=== PATIENT | female | born 1945 | race Caucasian/White ===

== ENCOUNTER 2016-08-24 09:36 | Inpatient (IN) | payer MEDICARE, OTHER ==
[~2016-08-24] VITALS: Ht 160 cm; Wt 70.8 kg
[2016-08-24] MEDS ORDERED: ENALAPRIL20 MG PO (09:45)
[2016-08-24] MEDS ORDERED: SYNTHROID25 MCG PO (09:45)
[2016-08-24] MEDS ORDERED: PROZAC10 MG PO (09:45)
[2016-08-24] MEDS ORDERED: ALPRAZOLAM PO (09:45)
[2016-08-24] MEDS ORDERED: HYDROCHLOROT25 MG PO (09:46)
[2016-08-24 09:54] LABS: HEMATOCRIT 32.8 % (37.0-47.0); HEMOGLOBIN 10.7 g/dl (12.0-16.0); IMMATURE GRANULOCYTES 0.2 % (0.0-1.0); MEAN CELL VOLUME 84.8 fL CALC (80.0-100.0); MEAN CORPUSCULAR HGB 27.6 pG CALC (26.0-32.0); MEAN CORPUSCULAR HGB CONC 32.6 g/L CALC (32.0-36.0); NEUT# 3.6 thou/uL (2.00-7.15); RED BLOOD COUNT 3.87 mill/uL (4.20-5.60); RED CELL DISTRI WIDTH 14.9 % (11.5-15.5)
[2016-08-24 10:10] LABS: PROTHROMBIN TIME 10.5 SECONDS (9.0-12.5)
[2016-08-24 10:12] LABS: ALBUMIN 3.8 g/dL (3.2-5.0); ALKALINE PHOSPHATASE 79 u/l (38-126); AMYLASE 56 u/l (30-110); ANION GAP 13 (6-22 (CALC)); BILIRUBIN, TOTAL 0.5 mg/dL (0.0-1.4); BUN 11 mg/dL (8-23); BUN/CREATININE RATIO 15 (12-20 (CALC)); CALCIUM 9.3 mg/dL (8.4-10.2); CARBON DIOXIDE 25 mmol/l (22-30); CHLORIDE 105 mmol/l (95-108); CREATININE 0.7 mg/dL (0.5-1.0); GFR > 60 ML/MIN (>=60 (CALC)); GFR FOR AFR.AMER. > 60 ML/MIN (>=60 (CALC)); GLUCOSE 105 mg/dL (82-115); LIPASE 57 u/l (23-300); SGOT/AST 23 u/l (9-36); SGPT/ALT 28 u/l (11-66); SODIUM 139 mmol/l (137-146); TOTAL PROTEIN 6.6 g/dL (6.3-8.2)
[2016-08-24] MEDS ORDERED: PRILOSEC20 MG PO (10:18)
[2016-08-24 10:24] LABS: MYOGLOBIN 22 ng/mL (0 - 62)
[2016-08-24 12:34] VITALS: BP 140/71
[2016-08-24 14:57] VITALS: BP 104/60
[2016-08-24 15:56] LABS: URINE BILIRUBIN - DIPSTICK NEGATIVE (NEGATIVE); URINE BLOOD DIPSTICK NEGATIVE (NEGATIVE); URINE CLARITY CLEAR; URINE COLOR YELLOW; URINE GLUCOSE - DIPSTICK NEGATIVE (NEGATIVE); URINE KETONE NEGATIVE (NEGATIVE); URINE NITRITE - DIPSTICK NEGATIVE (Negative); URINE PROTEIN - DIPSTICK NEGATIVE (NEG-TRACE); URINE SPECIFIC GRAVITY 1.025
[2016-08-24 15:57] LABS: URINE LEUK ESTERASE SMALL (NEGATIVE)
[2016-08-24 16:04] LABS: URINE SQUAMOUS EPITHELIAL CELL FEW EPI/hpf (0-FEW)
[2016-08-24 19:30] VITALS: BP 143/66
[2016-08-24 23:57] VITALS: BP 149/66
[2016-08-25 04:33] VITALS: BP 124/51
[2016-08-25 04:37] VITALS: BP 148/67
[2016-08-25 05:41] LABS: CALCULATED LDLCHOLESTEROL 95 mg/dL (62-129 (CALC)); HDL CHOLESTEROL 31 mg/dL (>=40); TOTAL CHOLESTEROL 159 mg/dl (0-199); TOTAL TRIGLYCERIDES 166 mg/dl (30-149); VLDL CHOLESTROL 33 mg/dl (0-48 (CALC))
[2016-08-25 08:28] VITALS: BP 107/39
[2016-08-25 10:53] VITALS: BP 134/62
== END 2016-08-25 13:55 | disposition short-term general hospital (02) | DRG 303 ==
LOC: ED 09:36 → ED-I 10:45 → ED 11:07 → MS2 11:08
PROVIDERS: Emergency Medicine; ADMIT Internal Medicine; ATTEND Internal Medicine
DX: I25.110 Atherosclerotic heart disease of native coronary artery with unstable angina pectoris (principal); I11.0 Hypertensive heart disease with heart failure; I50.9 Heart failure, unspecified; R82.71 Bacteriuria; F41.9 Anxiety disorder, unspecified; K21.9 Gastro-esophageal reflux disease without esophagitis; E03.9 Hypothyroidism, unspecified; F31.9 Bipolar disorder, unspecified; Z82.49 Family history of ischemic heart disease and other diseases of the circulatory system; Z87.891 Personal history of nicotine dependence
CPT/HCPCS: J1650

== ENCOUNTER 2020-09-29 16:48 | Emergency (ER) | payer MEDICARE ==
[~2020-09-29] VITALS: Ht 160 cm; Wt 77.0 kg
[~2020-09-29 16:48] MED LIST: ALPRAZOLAM PO; ENALAPRIL20 MG PO; HYDROCHLOROT25 MG PO; PRILOSEC20 MG PO; PROZAC20 MG PO; SYNTHROID200 MCG PO
[2020-09-29 17:16] LABS: IMMATURE GRANULOCYTES 0.7 % (0.0-5.0); MEAN CELL VOLUME 88.2 fL CALC (80.0-100.0); MEAN CORPUSCULAR HGB 29.4 pG CALC (26.0-32.0); MEAN CORPUSCULAR HGB CONC 33.3 g/dL CAL (32.0-36.0); NEUT# 12.95 thou/uL (2.00-7.15); RED BLOOD COUNT 4.42 mill/uL (4.20-5.60); RED CELL DISTRI WIDTH 13.2 % (11.5-15.5)
[2020-09-29 17:29] LABS: ALBUMIN 3.6 g/dL (3.2-5.0); ALKALINE PHOSPHATASE 104 u/l (38-126); ANION GAP 12 (6-22 (CALC)); BILIRUBIN, TOTAL 0.4 mg/dL (0.0-1.4); BUN 19 mg/dL (8-23); BUN/CREATININE RATIO 31 (12-20 (CALC)); CARBON DIOXIDE 26 mmol/l (22-30); CHLORIDE 96 mmol/l (95-108); CREATININE 0.6 mg/dL (0.5-1.0); GFR > 60 ML/MIN (>=60 (CALC)); GFR FOR AFR.AMER. > 60 ML/MIN (>=60 (CALC)); POTASSIUM 3.4 mmol/l (3.5-5.1); SGOT/AST 24 u/l (9-36); SODIUM 131 mmol/l (137-146); TOTAL PROTEIN 6.9 g/dL (6.3-8.2)
[2020-09-29 18:42] LABS: URINE BILIRUBIN - DIPSTICK NEGATIVE (NEGATIVE); URINE BLOOD DIPSTICK NEGATIVE (NEGATIVE); URINE COLOR YELLOW; URINE GLUCOSE - DIPSTICK NEGATIVE (NEGATIVE); URINE KETONE NEGATIVE (NEGATIVE); URINE LEUK ESTERASE TRACE (NEGATIVE); URINE PROTEIN - DIPSTICK NEGATIVE (NEG-TRACE); URINE SPECIFIC GRAVITY 1.025
[2020-09-29 18:44] LABS: URINE NITRITE - DIPSTICK NEGATIVE (Negative)
== END 2020-09-29 19:10 ==
LOC: ED 16:48
PROVIDERS: Family Medicine
PROC: 0T9B70Z Drainage of Bladder with Drainage Device, Via Natural or Artificial Opening (ICD-10-PCS; principal; 2020-09-29)
DX: M54.16 Radiculopathy, lumbar region (principal); I10 Essential (primary) hypertension; Z98.890 Other specified postprocedural states

== ENCOUNTER 2020-10-20 00:36 | Emergency (ER) | payer MEDICARE ==
[~2020-10-20] VITALS: Ht 160 cm; Wt 77.0 kg
[2020-10-20 01:08] LABS: IMMATURE GRANULOCYTES 1.2 % (0.0-5.0); MEAN CELL VOLUME 92.1 fL CALC (80.0-100.0); MEAN CORPUSCULAR HGB 29.6 pG CALC (26.0-32.0); MEAN CORPUSCULAR HGB CONC 32.1 g/dL CAL (32.0-36.0); NEUT# 9.75 thou/uL (2.00-7.15); RED BLOOD COUNT 3.04 mill/uL (4.20-5.60); RED CELL DISTRI WIDTH 16.9 % (11.5-15.5)
[2020-10-20 01:27] LABS: POTASSIUM 3.2 mmol/l (3.5-5.1); TOTAL PROTEIN 5.7 g/dL (6.3-8.2)
[2020-10-20 01:34] LABS: ACT PARTIAL THROMBO TIME 36.3 SECONDS (20.0-32.5); CREATININE 1.6 mg/dL (0.5-1.0)
[2020-10-20 01:35] LABS: ALBUMIN 2.8 g/dL (3.2-5.0); BILIRUBIN, TOTAL 0.8 mg/dL (0.0-1.4)
[2020-10-20 02:22] LABS: INTERNATIONAL NORMALIZED RATIO 12.9 RATIO (0.7-1.3); PROTHROMBIN TIME 128.2 SECONDS (9.0-12.5)
[2020-10-20] MEDS ORDERED: ALLOPURINOL100 MG PO (03:38)
[2020-10-20] MEDS ORDERED: TRAZODONE50 MG PO (03:39)
[2020-10-20] MEDS ORDERED: TOPROL XL25 M1 PO (03:40)
[2020-10-20] MEDS ORDERED: LASIX20 MG PO (03:40)
[2020-10-20] MEDS ORDERED: FAMOTIDINE20 M1 PO (03:40)
[2020-10-20] MEDS ORDERED: MORPHINE SUL15 MG PO (03:41)
[2020-10-20] MEDS ORDERED: OXYCODONE5 M1 PO (03:42)
[2020-10-20] MEDS ORDERED: CEFAZOLIN SODIUM2 GM IV (03:44)
[2020-10-20 03:58] VITALS: BP 147/80
== END 2020-10-20 03:57 | disposition short-term general hospital (02) ==
LOC: ED 00:36
PROVIDERS: Emergency Medicine
DX: I11.0 Hypertensive heart disease with heart failure (principal); I50.9 Heart failure, unspecified; J18.9 Pneumonia, unspecified organism; R79.89 Other specified abnormal findings of blood chemistry; D68.9 Coagulation defect, unspecified